=== PATIENT | male | born 1970 | race Caucasian/White ===

== ENCOUNTER 2017-02-26 13:37 | Inpatient (IN) | payer OTHER ==
--- NOTE | ~2017-02-26 | PN ---
Unit #: [id number] #: [id number] Patient: PITO LLOYD [id number] [facility] [address] [place] [address] [id number] MR#: [id number] NAME: PITO LLOYD ROOM: P212 Age: 46 Sex: M Admission Date: 02/26/2017 : 1970 Attending Physician: Johana Forrest M.D. Admitting Physician: Johana Forrest M.D. Primary Care Physician: Generic Doctor Not In System [facility] PROGRESS NOTES DATE March 04, 2017 DISCUSSION Mr. Lloyd is a 46-year-old white male, who was seen today and chart was reviewed and the case was discussed with the staff. He appears to be improving and has appeared to be coming out of the detox without any complications. He has been taking the medications and tolerating them fairly well. He denies any suicidal or homicidal ideations and has been taking the medications and level of precaution and will consider doing discharge tomorrow. Dictated by... Roxana Lozada/karen TD: 03/05/2017 06:44 JOB #: [id number] [facility] PROGRESS NOTES Page 1 of 1 X Johana Forrest MD PROGRESS NOTE
--- NOTE | ~2017-02-26 | HP ---
Unit #: [id number] #: [id number] Patient: PITO DIAMOND [id number] [place] [address] [id number] MR#: [id number] NAME: PITO DIAMOND ROOM: P212 Age: 46 Sex: M Admission Date: 02/26/2017 : 1970 Attending Physician: Johana Forrest M.D. Admitting Physician: Johana Forrest M.D. Primary Care Physician: Generic Doctor Not In System HISTORY AND PHYSICAL HISTORY OF PRESENT ILLNESS Pito is a 46 year old admitted to [address] [place] [address] because of his abuse of alcohol. PAST MEDICAL HISTORY 1. Long history of alcohol abuse. 2. Hepatitis C. 3. High blood pressure. PAST SURGICAL HISTORY Nothing reported ALLERGIES No known drug allergies. SOCIAL HISTORY Smokes one pack per day. Drinks a gallon of vodka plus 8 beers on a daily basis and admits to frequent use of marijuana. FAMILY HISTORY Medically noncontributory. REVIEW OF SYSTEMS CONSTITUTIONAL: No fever or chills. HEENT: Denies any sore throat, ear pain or runny nose. CARDIOVASCULAR: Denies chest pain, irregular heart rhythm or palpitations. CHEST: Denies shortness of breath or cough. No hemoptysis. GASTROINTESTINAL: Denies nausea, vomiting, diarrhea or chronic constipation. ENDOCRINE: Denies history of increased thirst or urination. No recent significant weight loss or gain. GENITOURINARY: Denies dysuria, frequency, or hematuria. SKIN: Denies any rashes. HEMATOLOGIC: Denies history of increased bleeding or bruising. MUSCULOSKELETAL: Denies any hot, swollen joints. No generalized muscle pain. NEUROLOGIC: Denies problems with vision or speech. No frequent, severe headaches. No numbness, tingling or weakness in any extremities. Denies loss of bladder or bowel control. CURRENT MEDICATIONS Detox protocol Unit #: [id number] #: [id number] Patient: PTIO DIAMOND PHYSICAL EXAMINATION GENERAL: Alert, well-nourished, in no apparent distress. VITAL SIGNS: Blood pressure 138/88, heart rate 84, respirations 16, temperature 98.6. WEIGHT: 135 pounds. HEIGHT: 5'8". SKIN: Warm and dry without rash or lesion. HEENT: Normocephalic. TMs not viewed. Oral and nasal passages clear. Conjunctivae clear. Pupils equal, round and reactive to light and accommodation. Extraocular movements intact. NECK: Supple without lymphadenopathy or thyromegaly. HEART: Regular rate and rhythm without murmur. LUNGS: Clear. ABDOMEN: Soft, nontender. : Not done. EXTREMITIES: No evidence of cyanosis, clubbing or edema. Moves all extremities without focal deficit. NEUROLOGICAL: Grossly within normal limits. Cranial Nerves: II: Visual villegas are intact. III, IV AND : Extraocular movements are intact. Pupils are equal, round and reactive to light. V: Facial sensation is grossly normal. VII: Facial movements and expression are normal. VIII: Auditory acuity grossly intact. IX, X: Uvula is midline. Phonation is normal. XI: Patient shrugs shoulders and turns head normally. XII: Tongue protrudes in the midline. Sensory and Motor Function: Sensory and motor sensation is grossly normal. Motor: moves all extremities well. Coordination: Gait is normal. Deep Tendon Reflexes: Intact. IMPRESSION Psychiatric admission RECOMMENDATIONS PSYCHIATRIC: Per psychiatrist. MEDICAL: I see no contraindications to participating in facility's activities. MEDICAL PROGNOSIS Good. MEDICAL CONDITION Stable. Dictated by... Vicky Paez P.A.-C. for Roxana Reis/loni TD: 02/26/2017 22:33 JOB #: [id number] Unit #: [id number] #: [id number] Patient: LOBO,PITO HISTORY AND PHYSICAL Page 1 of 1 X Vicky Paez HISTORY AND PHYSICAL
--- NOTE | ~2017-02-26 | DS ---
Unit #: [id number] #: [id number] [facility]: [facility] [id number] [facility] [address] [place] [address] [id number] I MR#: [id number] NAME: PITO LLOYD ROOM: [facility] Age: 46 Sex: M Admission Date: 02/26/2017 : 1970 Discharge Date: 03/05/2017 Attending Physician: Johana Forrest M.D. DISCHARGE SUMMARY IDENTIFYING DATA Mr. Lloyd is a 46-year-old white male, who is a resident of [place], [place] and was transferred to us from [facility] ([place], [place]) in [place]. DISCHARGE DIAGNOSES Psychiatric: Alcohol dependence, moderate and acute withdrawals; alcohol-induced mood disorder. Medical: Hepatitis C, history of cirrhosis of the liver, seizure disorder. Stressors: Moderate psychosocial stressors. HISTORY OF PRESENT ILLNESS Please see initial psychiatric evaluation for details. PAST PSYCHIATRIC HISTORY Please see initial psychiatric evaluation for details. PAST MEDICAL HISTORY Please see initial psychiatric evaluation for details. HOSPITAL COURSE The patient was admitted to the adult chemical dependency unit at [facility] and was oriented to the hospital environment. Routine p.r.n. medications were initiated, and he was started back on his home medications and alcohol detox protocol was initiated and he was initially seen to be anxious, restless, and rather seclusive to himself, but was able to come out of the detox without any complications and was willing to continue treatment on an outpatient basis and as such, it was decided that he will be discharged home and will continue treatment on an outpatient basis. DISCHARGE MEDICATIONS None. DISCHARGE CONDITION Stable. PROGNOSIS Fair. Dictated by... Johana Forrest M.D. Unit #: [id number] #: [id number] Patient: PITO LLOYD IAA/modl TD: 03/05/2017 06:58 JOB #: [id number] DISCHARGE SUMMARY Page 1 of 1 X Johana Forrest MD X DISCHARGE SUMMARY
--- NOTE | ~2017-02-26 | PN ---
Unit #: [id number] #: [id number] Patient: PITO LLOYD [id number] [facility] [address] [place] [address] [id number] I MR#: [id number] NAME: PITO LLOYD ROOM: [facility] Age: 46 Sex: M Admission Date: 02/26/2017 : 1970 Attending Physician: Johana Forrest M.D. Admitting Physician: Johana Forrest M.D. Primary Care Physician: Generic Doctor Not In System [facility] PROGRESS NOTES DATE OF SERVICE: 03/03/2017 SUBJECTIVE Mr. Lloyd is a 46-year-old white male who was seen today and chart was reviewed, and case was discussed with the staff. He has been anxious, withdrawn, and rather seclusive to himself, and has been cooperative with treatment recommendations, and has been taking the medications and tolerating them fairly well with no reported side effects. MENTAL STATUS EXAMINATION Middle-aged white male who was casually dressed with fair personal hygiene, appears to be in no acute distress or discomfort. He was awake and alert on interaction with intact orientation. His mood was anxious with a congruent affect. He denies any suicidal or homicidal ideations. His insight and judgment remain slightly impaired. TREATMENT PLAN 1. We will continue him on his current medications and treatment protocol. We will monitor his response to medications and make further adjustments as needed. 2. We will continue to follow up. Dictated by... Roxana Lozada/tanvir TD: 03/03/2017 14:52 JOB #: [id number] [facility] PROGRESS NOTES Page 1 of 1 X Johana Forrest MD PROGRESS NOTE
--- NOTE | ~2017-02-26 | PN ---
Unit #: [id number] #: [id number] Patient: PITO LLOYD [id number] [facility] [address] [place] [address] [id number] MR#: [id number] NAME: PITO LLOYD ROOM: [facility] Age: 46 Sex: M Admission Date: 02/26/2017 : 1970 Attending Physician: Johana Forrest M.D. Admitting Physician: Johana Forrest M.D. Primary Care Physician: Generic Doctor Not In System [facility] PROGRESS NOTES DATE OF SERVICE: 02/27/2017 SUBJECTIVE Mr. Lloyd is a 46-year-old white male with alcohol dependence and mood disorder, who was seen today and chart was reviewed, and case was discussed with the staff. He has been anxious, withdrawn, in distress or discomfort, unkempt, disheveled, shaky, and tremulous with slurred speech and has not been able to get out of his bed. Meanwhile, he has been taking medications and tolerating them fairly well with no reported side effects. MENTAL STATUS EXAMINATION Middle-aged white male, who was casually dressed with fair personal hygiene, appears to be in no acute distress or discomfort. He was awake and alert with impaired attention and concentration. His mood was anxious with a congruent affect. His speech is slow and restricted in content. He denies any suicidal or homicidal ideation. His insight and judgment remain significantly impaired. TREATMENT PLAN 1. We will continue him on his current medications and treatment protocol. We will monitor his response to medications and make further adjustments as needed. 2. We will continue to follow up. Dictated by... Roxana Lozada/tanvir TD: 02/27/2017 23:29 JOB #: [id number] Unit #: [id number] #: [id number] Patient: PITO LLOYD PROGRESS NOTES Page 1 of 1 X Johana Forrest MD PROGRESS NOTE
--- NOTE | ~2017-02-26 | PN ---
Unit #: [id number] #: [id number] Patient: PITO LLOYD [id number] [facility] [address] [place] [address] [id number] MR#: [id number] NAME: PITO LLOYD ROOM: [facility] Age: 46 Sex: M Admission Date: 02/26/2017 : 1970 Attending Physician: Johana Forrest M.D. Admitting Physician: Johana Forrest M.D. Primary Care Physician: Generic Doctor Not In System [facility] PROGRESS NOTES DATE OF SERVICE 03/01/2017 DISCUSSION Ms. Lloyd is a 46-year-old male who was seen today. Chart was reviewed and case was discussed with the staff. He has been anxious, withdrawn, and rather seclusive to himself. Meanwhile, he has been cooperative with treatment recommendations and has been taking the medications and tolerating them fairly well with no reported side effects. MENTAL STATUS EXAMINATION Middle-aged white male who is casually dressed with fair personal hygiene, appears to be in no slight distress or discomfort. He was awake and alert with intact orientation. His mood is anxious with congruent affect. He denies any suicidal or homicidal ideations. His insight and judgment remain slightly impaired. TREATMENT PLAN 1. We will continue him on his current medications and treatment protocol. We will monitor his response to the medications and make further adjustments as needed. 2. We will continue to follow up. Dictated by... Johana Forrest M.D. IAA/bzg TD: 03/02/2017 07:40 JOB #: [id number] [facility] PROGRESS NOTES Page 1 of 1 X Johana Forrest MD PROGRESS NOTE
--- NOTE | ~2017-02-26 | PN ---
Unit #: [id number] #: [id number] Patient: PITO LLOYD [id number] [facility] [address] [place] [address] [id number] I MR#: [id number] NAME: PITO LLOYD ROOM: [facility] Age: 46 Sex: M Admission Date: 02/26/2017 : 1970 Attending Physician: Johana Forrest M.D. Admitting Physician: Johana Forrest M.D. Primary Care Physician: Generic Doctor Not In System [facility] PROGRESS NOTES DATE 03/02/2017 DISCUSSION Mr. Lloyd is a 46-year-old white male who was seen today and chart was reviewed and case was discussed with the staff. He has been anxious, withdrawn though has not shown any agitation, irritability and has been cooperative with treatment recommendations and has been taking medications and tolerating them fairly well with no reported side effects. MENTAL STATUS EXAMINATION Middle-aged white male who was casually dressed with fair personal hygiene and appears to be in no acute distress or discomfort. He was awake and alert on interaction with intact orientation. His mood was anxious with congruent affect. His speech is slow and goal-directed. He denies any suicidal or homicidal ideation and also denies any auditory or visual hallucinations. His insight and judgement remains slightly impaired. TREATMENT PLAN 1. Will continue on his current medications and treatment protocol. Will monitor his response and make further adjustments as needed. 2. Will continue to follow up. Dictated by... Johana Forrest M.D. IAA/ida TD: 03/02/2017 22:18 JOB #: [id number] Unit #: [id number] #: [id number] Patient: PITO LLOYD PEATIFFANIE PROGRESS NOTES Page 1 of 1 X Johana Forrest MD X PROGRESS NOTE
--- NOTE | ~2017-02-26 | A ---
[facility] Nutrition Therapy DATE: 02/28/17 Patient: PITO DIAMOND Physician: AFAIRF Address: [address] Room/Bed: [address], Zip: [place] [address] Admit Date: 02/26/17 Date of : [birth year] Height: 5 8 Weight: 134 61.48234 NUTRITIONAL ASSESSMENT: REASON: NUTRITION RISK POINT- UNINTENTIONAL WEIGHT LOSS PATIENT ADMITTED FOR ETOH DETOX PMH: HTN, HEP C, CIRRHOSIS Anthropometrics: HT: 5'8", WT: 135#, BMI: 20.5, %IBW: 88 Labs: 02/27/17- GLU: 139, ALB: 3.2 Meds: DESYREL, DETOX PROTOCOL Assessment: PATIENT IS A 46 Y/O MALE ADMITTED FOR ETOH DETOX. PATIENT IS CURRENTLY UNEMPLOYED, HOMELESS, SMOKES 1 PPD, DRINKS A GALLON OF ETOH DAILY, AND HAS FREQUENT MARIJUANA USE. PATIENT HAS BEEN NON-COMPLIANT WITH MEDICATIONS OUTSIDE OF FACILITY AND HE HAS A HX OF INPATIENT CHEMICAL DEPENDENCY TREATMENT. PATIENT STATED A GOOD APPETITE WITH NO RECENT WEIGHT CHANGES. NURSING REPORTS GOOD PO INTAKES. PATIENT'S BMI IS WITHIN A HEALTHY RANGE OF 19-25. THERE ARE NO SKIN OR GI ISSUES NOTED ATT. PATIENT IS ON A REGULAR DIET WITH NO CAFFEINE, LARGE PORTION ENTREES, AND ENSURE TID. Dx: NO NUTRITION DX Intervention: REGULAR DIET WITH LARGE PORTIONS, MEDS PER MD, DETOX, PSYCH Monitoring, Evaluation and Goals: 1. ADEQUATE PO INTAKES >50% OF MEALS 2. PREVENT, CORRECT MICRO/MACRO NUTRIENT DEFICIENCIES 3. WEIGHT; PREVENT WEIGHT LOSS MONITOR: WEIGHTS, LABS, PO/FLUID INTAKES Recommendations: 1. CONTINUE REGULAR DIET WITH NO CAFFEINE AND LARGE PORTION ENTREES TOLERATED. RECOMMEND D/CING ENSURE TID D/T NO NUTRITIONAL NEED FOR EXCESSIVE CALORIC INTAKE 2. ENCOURAGE ADEQUATE PO AND FLUID INTAKES 3. OBTAIN WEIGHTS ROUTINELY (EVERY 3-4 DAYS) RD TO F/U PER PROTOCOL AND PRN R/T PATIENT NOT AT NUTRITIONAL RISK ATT [facility] Nutrition Therapy DATE: 02/28/17 Patient: PITO DIAMOND Physician: AFF Address: [address] Room/Bed: [address], Zip: [place] [address] Admit Date: 04/17/17 Date of : [birth year] Height: 5 8 Weight: [phone] Respectfully, ARMEN TELLEZ, MITCHELL, LD [employer] [facility] [employer] cc: client file
--- NOTE | ~2017-02-26 | PN ---
Unit #: [id number] #: [id number] Patient: PITO LLOYD [id number] [facility] [address] [place] [address] [id number] I MR#: [id number] NAME: PITO LLOYD ROOM: [facility] Age: 46 Sex: M Admission Date: 02/26/2017 : 1970 Attending Physician: Johana Forrest M.D. Admitting Physician: Johana Forrest M.D. Primary Care Physician: Generic Doctor Not In System [facility] PROGRESS NOTES DATE OF SERVICE 02/28/2017 DISCUSSION Mr. Lloyd is a 46-year-old white male with substance abuse and mood disorder who was seen today. Chart was reviewed and case was discussed with the staff. He has been anxious, withdrawn, and rather seclusive to himself. Meanwhile, he has been in acute distress and discomfort. He is going through detox. However, he has been taking the medications and tolerating them fairly well with no reported side effects. MENTAL STATUS EXAMINATION Middle-aged white male who is casually dressed with fair personal hygiene, appears to be in no acute distress or discomfort. He was awake and alert on interaction with intact orientation. His mood is anxious and depressed with congruent affect. He denies any suicidal or homicidal ideations. His insight and judgment remain slightly impaired. TREATMENT PLAN 1. We will continue him on his current medications and treatment protocol. We will monitor his response to the medications and make further adjustments as needed. 2. We will continue to follow up. Dictated by... Roxana Lozada/jose eduardo TD: 03/01/2017 08:21 JOB #: [id number] Unit #: [id number] #: [id number] Patient: PITO LLOYD PEATIFFANIE PROGRESS NOTES Page 1 of 1 X Johana Forrest MD PROGRESS NOTE
--- NOTE | ~2017-02-26 | PA ---
Unit #: [id number] #: [id number] Patient: PITO LLOYD [id number] [facility] [address] [place] [address] [id number] I MR#: [id number] NAME: PITO LLOYD ROOM: P212 Age: 46 Sex: M Admission Date: 02/26/2017 : 1970 Date of Assessment: 02/26/2017 Attending Physician: Johana Forrest M.D. Admitting Physician: Johana Forrest M.D. Primary Care Physician: Generic Doctor Not In System PSYCHIATRIC ASSESSMENT DATE OF SERVICE 02/26/2017. IDENTIFYING DATA Mr. Lloyd is a 46-year-old white male, who is a resident of [place], [place], and was transferred to us from [facility] in [place], [place]. CHIEF COMPLAINT "I've been using alcohol for several years." HISTORY OF PRESENT ILLNESS Mr. Lloyd is a 46-year-old white male, who presented to the [facility] stating that he has been having ongoing issues with alcohol misuse for several years and he is currently drinking a gallon of vodka a day plus 6 to 8 beers and his last drink was around 2 in the morning on the day of coming to the hospital and has been having significant withdrawal symptoms including nausea, dry heaves, shakiness, pins and needles on his hand and feet, and sensitive to bright lights, and cravings, and has history of seizure most recently a year ago and also reports history of delirium tremens in the past with a most recent episode couple of months ago and was seen to be in significant distress and discomfort and as such, recommendation for inpatient level of care for safety and stabilization was recommended and the patient was transferred to us. SUBSTANCE ABUSE HISTORY The patient reports history of experimentation with cannabis and alcohol, though alcohol has been his drug of choice and reports that he has been drinking since he was 18 years old and currently has been drinking a gallon of vodka a day. PAST PSYCHIATRIC HISTORY The patient has had history of inpatient chemical dependency treatment at [facility] and in [facility] and review of the medical records indicate that currently he is not active in treatment program, is not seeing a psychiatrist, not taking any psychotropic medications. PAST MEDICAL HISTORY Significant for hepatitis C, cirrhosis, hypertension. ALLERGIES No known medication allergies. Unit #: [id number] #: [id number] Patient: PITO LLOYD PERSONAL AND SOCIAL HISTORY A 46-year-old white male, who reports that he is single, unemployed, and essentially homeless and has poor social support system. MENTAL STATUS EXAMINATION Middle-aged white male who was casually dressed with fair personal hygiene, appears to be in no acute distress or discomfort. He was awake and alert on interaction with intact orientation to time, place, and person. His mood was anxious and depressed with a congruent affect. His speech was slow and restricted in content. His thought processes were disorganized with some looseness of associations. He denies any suicidal or homicidal ideations, and also denies any auditory or visual hallucinations. His insight and judgment remain significantly impaired. DIAGNOSTIC IMPRESSION Psychiatric: Alcohol dependence, moderate and acute withdrawals; alcohol-induced mood disorder. Medical: Hepatitis C, cirrhosis of the liver, seizure disorder. Stressors: Moderate psychosocial stressors. TREATMENT PLAN 1. The patient has presented with history of substance abuse and mood disorder, and has been decompensating and will need inpatient hospitalization for detoxification, safety, and stabilization. We will start him back on his home medications. We will adjust the medications and monitor response. 2. Supportive therapy was provided to the patient. 3. Safe, structured, and nourishing environment will be provided. ESTIMATED LENGTH OF STAY 5 to 7 days. ABILITY TO HELP SELF Limited. WILLINGNESS TO HELP SELF The patient appears to be willing to help self. STRENGTHS 1. Communicative. 2. Cooperative. PROBLEMS 1. Chronic dysphoric symptoms. 2. Chronic chemical dependency. DISCHARGE CRITERIA This will be contingent upon the patient's ability to go through detox without having any significant withdrawal symptoms as well as his ability to stay safe to himself, particularly after discharge from the hospital. Dictated by... Roxana Lozada/tanvir Unit #: [id number] #: [id number] Patient: PITO LLOYD TD: 02/27/2017 08:46 JOB #: [id number] PSYCHIATRIC ASSESSMENT Page 1 of 1 X Johana Forrest MD X PSYCHIATRIC ASSESSMENT
[2017-02-27 09:58] LABS: BASOPHIL% 0.7 % (0-2.5); EOSINOPHIL# 0.2 X10e3 (0-0.7); EOSINOPHIL% 3.7 % (0.0-7.0); HEMATOCRIT 38.7 % (38.0-50.0); LYMPHOCYTE# 0.8 X10e3 (1.0-3.5); LYMPHOCYTE% 15.3 % (17.0-45.0); MEAN CELL VOLUME 95.7 FL (83-96); MEAN CORPUSCULAR HGB CONC 33.5 g/dL (30-36); MEAN PLATELET VOLUME 9.8 FL (6.5-11.5); MONOCYTE# 0.4 X10e3 (0-1.0); NEUTROPHIL# 3.6 X10e3 (1.5-7.1); NEUTROPHIL% 72.3 % (40-75); PLATELET COUNT 175 X10e3 (140-420); RED BLOOD COUNT 4.04 X10e (3.90-5.60); RED CELL DISTRIBUTION WIDTH 13.5 % (11.0-15.5)
[2017-02-27 10:00] LABS: URINE APPEARANCE CLOUDY; URINE BILIRUBIN NEG (NEG); URINE BLOOD NEG (NEG); URINE COLOR YELLOW; URINE GLUCOSE NORM (NORM); URINE KETONE NEG (NEG); URINE LEUKOCYTE ESTERASE NEG (NEG); URINE NITRATE NEG (NEG); URINE PROTEIN NEG (NEG); URINE UROBILINOGEN NORM (NORM)
[2017-02-27 10:00] LABS: DIFF IND NO
[2017-02-27 10:04] LABS: ALBUMIN SERUM 3.2 g/dL (3.5-5.0); BILIRUBIN,TOTAL 0.9 mg/dL (0.2-2.0); BUN/CREATININE RATIO 11.25; CALCIUM SERUM 8.7 mg/dL (8.4-10.2); CREATININE SERUM 0.8 mg/dL (0.6-1.4); GLOM FILT RATE Estimated 108.7 mL/min (>60); POTASSIUM 3.8 mmol/L (3.5-5.1); PROTEIN TOTAL SERUM 6.1 g/dL (6.0-8.3)
== END 2017-03-05 09:40 | disposition home or self-care (01) | DRG 897 ==
LOC: P2S 13:37
PROVIDERS: Psychiatry & Neurology Psychiatry
PROC: HZ2ZZZZ Detoxification Services for Substance Abuse Treatment (ICD-10-PCS; principal; 2017-02-26)
DX: F10.239 Alcohol dependence with withdrawal, unspecified (principal); K74.60 Unspecified cirrhosis of liver; G40.909 Epilepsy, unspecified, not intractable, without status epilepticus; F17.210 Nicotine dependence, cigarettes, uncomplicated
CPT/HCPCS: 80053; 81003; 85025; 86592

== ENCOUNTER 2017-03-16 15:26 | Inpatient (IN) | payer OTHER ==
--- NOTE | ~2017-03-16 | PN ---
Unit #: [id number] #: [id number] Patient: PITO LLOYD [id number] [facility] [address] [place] [address] [id number] MR#: [id number] NAME: PITO LLOYD ROOM: [facility] Age: 46 Sex: M Admission Date: 03/16/2017 : 1970 Attending Physician: Johana Forrest M.D. Admitting Physician: Johana Forrest M.D. Primary Care Physician: Generic Doctor Not In System [facility] PROGRESS NOTES DATE OF SERVICE 03/19/2017 DISCUSSION Mr. Lloyd is a 46-year-old white male who was seen today. Chart was reviewed and case was discussed with the staff. He has been anxious, withdrawn, and rather seclusive to herself. Meanwhile, he has been cooperative with the treatment recommendations and has been taking the medications and tolerating them fairly well with no reported side effects. MENTAL STATUS EXAMINATION Middle-aged white male who is casually dressed with marginal personal hygiene. He appears to be in distress and discomfort. He has been awake and alert with impaired attention and concentration. His mood is anxious with congruent affect. His speech is slow and restricted in content. He denies any suicidal or homicidal ideations and also denies any auditory or visual hallucinations. His insight and judgment remain slightly impaired. TREATMENT PLAN 1. We will continue him on his current medications and treatment protocol. We will monitor his response and make further adjustments as needed. 2. We will continue to follow up. Dictated by... Johana Forrest M.D. IAA/bzg TD: 03/20/2017 09:19 JOB #: [id number] Unit #: [id number] #: [id number] Patient: PITO LLOYD PROGRESS NOTES Page 1 of 1 X Johana Forrest MD PROGRESS NOTE
--- NOTE | ~2017-03-16 | PN ---
Unit #: [id number] #: [id number] Patient: PITO OLSON [id number] [facility] [address] [place] [address] [id number] I MR#: [id number] NAME: PITO OLSON ROOM: [facility] [place] Age: 46 Sex: M Admission Date: 03/16/2017 : 1970 Attending Physician: Johana Forrest M.D. Admitting Physician: Johana Forrest M.D. Primary Care Physician: Generic Doctor Not In System [facility] PROGRESS NOTES DATE 03/18/2017 DISCUSSION Mr. olson is a 46-year-old, white male who was seen today and chart was reviewed and case was discussed with the staff. He was seen to be anxious, withdrawn, unkempt, disheveled and rather seclusive to himself. Meanwhile, he has been cooperative with treatment recommendations. He has been taking medications and tolerating them fairly well with no reported side effects. MENTAL STATUS EXAM Middle-aged white male who was casually dressed with fair personal hygiene, appears to be in no acute distress or discomfort. He was awake and alert with intact orientation. His mood was anxious with congruent affect. His speech was slow and goal directed. He denies any suicidal or homicidal ideation. His insight and judgement remains slightly impaired. TREATMENT PLAN 1. We will continue him on his current medications and treatment protocol. We will monitor his response and make further adjustments as needed. 2. We will continue to follow up. Dictated by... Roxana Lozada/loni TD: 03/20/2017 02:58 JOB #: [id number] Unit #: [id number] #: [id number] Patient: PITO OLSON PROGRESS NOTES Page 1 of 1 X Johana Forrest MD PROGRESS NOTE
--- NOTE | ~2017-03-16 | PA ---
Unit #: [id number] #: [id number] Patient: PITO LLOYD [id number] [facility] [address] [place] [address] [id number] I MR#: [id number] NAME: PITO LLOYD ROOM: P212 Age: 46 Sex: M Admission Date: 03/16/2017 : 1970 Date of Assessment: Attending Physician: Johana Forrest M.D. Admitting Physician: Johana Forrest M.D. PSYCHIATRIC ASSESSMENT DATE OF SERVICE 03/17/2017. IDENTIFYING DATA Mr. Lloyd is a 46-year-old , white male, who is known to me from previous encounter, was recently discharged from my care and was transferred back to us from [facility] on a voluntary basis. CHIEF COMPLAINT "I've been drinking a pint of vodka and a beer." HISTORY OF PRESENT ILLNESS Mr. Lloyd is a 46-year-old white male with a long history of alcohol dependence, who was taken to [facility] in [place], [place] Emergency Room with a blood alcohol level of 359 and was seemed to be unkempt, disheveled, in significant distress and discomfort, stating that he last drank a pint of beer and a pint of vodka a few hours ago and reports that he was discharged from [facility] on 03/05/2017 and he was in shelter the day before yesterday and he got out and started drinking immediately and was seemed to be in significant distress and discomfort with increasing depression, anxiety, and was medically cleared and then was transferred to us. On evaluation by me, the patient was seemed to be unkempt, disheveled, in significant distress and was describing feeling "awful." He also reports increasing depression, anxiety with feelings of hopelessness and helplessness, making statements that he cannot keep on going on like this. He reports about a year ago, he attempted suicide by drinking a pint of 100 proof alcohol and taking a bottle of blood pressure medication. He reports over the last 2 years, he has experienced intermittent thoughts of killing himself with no specific plan. He reports that he attempted suicide by overdose on blood pressure medication and other medications a few months ago, and currently denies any suicidal ideations. However, the patient became frustrated with a question and stated that if someone did not give him medication to calm down, he would hurt someone and then leave the hospital and wants to be danger to self and others, and therefore recommendation for inpatient level of care for safety and stabilization was made, and the patient was transferred to us. SUBSTANCE ABUSE HISTORY The patient reports a long history of alcohol dependence and has been drinking heavy amounts of alcohol, and denies any other drug abuse. PAST PSYCHIATRIC HISTORY Unit #: [id number] #: [id number] Patient: PITO LLYOD The patient has had a history of inpatient chemical dependency treatment at [facility], [facility], and [facility]. Review of the medical records indicate that currently he is not active in any treatment program, is not seeing a psychiatrist, and is not taking any psychotropic medications. PAST MEDICAL HISTORY History of cirrhosis of the liver, hepatitis C, hypertension. ALLERGIES No known medication allergies. CURRENT MEDICATIONS None. PERSONAL AND SOCIAL HISTORY A 46-year-old white male, who reports that he is , unemployed, and he is currently homeless and has poor social support system. MENTAL STATUS EXAMINATION Middle-aged white male, who was casually dressed with marginal personal hygiene, appears to be in no acute distress or discomfort. He was awake and alert with impaired attention and concentration. His mood was anxious and depressed with a congruent affect. His speech was slow and restricted in content. His thought processes were disorganized with some looseness of associations and flight of ideas. His insight and judgment remain significantly impaired. DIAGNOSTIC IMPRESSION Psychiatric: Alcohol dependence, moderate, in acute withdrawals; alcohol-induced mood disorder. Medical: Cirrhosis of the liver, hepatitis C, hypertension. Stressors: Moderate psychosocial stressors. TREATMENT PLAN 1. The patient has presented with history of mood disorder and substance abuse and has been decompensating, and will need inpatient hospitalization for safety and stabilization. We will start him on detox protocol. We will closely monitor for any worsening withdrawal symptoms. 2. Supportive therapy was provided to the patient. 3. Safe, structured, and nourishing environment will be provided. ESTIMATED LENGTH OF STAY 5 to 7 days. ABILITY TO HELP SELF Limited. WILLINGNESS TO HELP SELF The patient appears to be willing to help self. STRENGTHS 1. Communicative. 2. Cooperative. PROBLEMS 1. Chronic dysphoric symptoms. 2. Chronic chemical dependency. 3. Poor social support system. Unit #: [id number] #: [id number] Patient: PITO LLOYD DISCHARGE CRITERIA This will be contingent upon the patient's ability to go through detox without having any significant withdrawal symptoms as well as his ability to stay safe to himself, particularly after discharge from the hospital. Dictated by... Roxana Lozada/tanvir TD: 03/17/2017 16:33 JOB #: [id number] PSYCHIATRIC ASSESSMENT Page 1 of 1 X Johana Forrest MD PSYCHIATRIC ASSESSMENT
--- NOTE | ~2017-03-16 | PN ---
Unit #: [id number] #: [id number] Patient: PITO LLOYD [id number] [facility] [address] [place] [address] [id number] I MR#: [id number] NAME: PITO LLOYD ROOM: P212 Age: 46 Sex: M Admission Date: 03/16/2017 : 1970 Attending Physician: Johana Forrest M.D. Admitting Physician: Johana Forrest M.D. Primary Care Physician: Generic Doctor Not In System [facility] PROGRESS NOTES DATE 03/20/2017 DISCUSSION Mr. Lloyd is a 46-year-old, white male who was seen today and chart was reviewed and case was discussed with the staff. He has been anxious, withdrawn and rather seclusive to himself. Meanwhile, he has been cooperative with treatment recommendations. He has been taking medications and tolerating them fairly well with no reported side effects. MENTAL STATUS EXAM Middle-aged white male who was casually dressed with marginal personal hygiene, appears to be in distress or discomfort. He was awake and alert on interaction with intact orientation. His mood was anxious with congruent affect. He denies any suicidal or homicidal ideation. Also, denies any auditory or visual hallucinations. His insight and judgement remains slightly impaired. TREATMENT PLAN 1. We will continue him on his current medications and treatment protocol. We will monitor his response to the medication and make further adjustments as needed. 2. We will continue to follow up. Dictated by... Roxana Lozada/loni TD: 03/21/2017 03:16 JOB #: [id number] Unit #: [id number] #: [id number] Patient: PITO LLOYD PROGRESS NOTES Page 1 of 1 X Johana Forrest MD X PROGRESS NOTE
--- NOTE | ~2017-03-16 | PN ---
Unit #: [id number] #: [id number] Patient: PITO LLOYD [id number] [facility] [address] [place] [address] [id number] I MR#: [id number] NAME: PITO LLOYD ROOM: P212 Age: 46 Sex: M Admission Date: 03/16/2017 : 1970 Attending Physician: Johana Forrest M.D. Admitting Physician: Johana Forrest M.D. Primary Care Physician: Generic Doctor Not In System [facility] PROGRESS NOTES DATE 03/21/2017 DISCUSSION Mr. Lloyd is a 46-year-old, white male who was seen today and chart was reviewed and case was discussed with the staff. He has been anxious, withdrawn and seclusive to himself and once again was seen to be (1)____ though he stated that he is feeling "a little better." Meanwhile, he has been taking the medications and tolerating them fairly well with no reported side effects. MENTAL STATUS EXAM Middle-aged white male was casually dressed with fair personal hygiene. He appears to be in no acute distress or discomfort. He was awake and alert on interaction with intact orientation. His mood was anxious with congruent affect. He denies any suicidal or homicidal ideation. His insight and judgement remains slightly impaired. TREATMENT PLAN 1. We will continue him on his current medications and treatment protocol. We will monitor his response to the medication and make further adjustments as needed. 2. We will continue to follow up. Dictated by... Roxana Lozada/loni TD: 03/22/2017 03:22 JOB #: [id number] Unit #: [id number] #: [id number] Patient: PITO LLOYD [facility] PROGRESS NOTES Page 1 of 1 X Johana Forrest MD PROGRESS NOTE
--- NOTE | ~2017-03-16 | HP ---
Unit #: [id number] #: [id number] Patient: PITO DIAMOND [id number] [facility] [address] [place] [address] [id number] I MR#: [id number] NAME: PITO DIAMOND ROOM: [facility][Note 3]2 Age: 46 Sex: M Admission Date: 03/16/2017 : 1970 Attending Physician: Johana Forrest M.D. Admitting Physician: Johana Forrest M.D. Primary Care Physician: Generic Doctor Not In System HISTORY AND PHYSICAL NOTE The patient is a 46-year-old male admitted to [address] [place] [address] on 03/16/2017 to detox from alcohol. The patient had a recent admission on 02/26/2017 where a full history and physical was completed. Please see H and P dated 02/26/2017. That history and physical was reviewed. No changes need to be made. Dictated by... Bridger Lyons A.P.R.N. EF/bzg TD: 03/17/2017 11:32 JOB #: [id number] HISTORY AND PHYSICAL Page 1 of 1 X BRIDGER LYONS APRN X HISTORY AND PHYSICAL
== END 2017-03-22 15:37 | disposition home or self-care (01) | DRG 897 ==
LOC: P2S 21:57
DX: F10.239 Alcohol dependence with withdrawal, unspecified (principal); F10.24 Alcohol dependence with alcohol-induced mood disorder; K74.60 Unspecified cirrhosis of liver; I10 Essential (primary) hypertension; F17.210 Nicotine dependence, cigarettes, uncomplicated; B19.20 Unspecified viral hepatitis C without hepatic coma

== ENCOUNTER 2017-04-03 06:00 | Inpatient (IN) | payer OTHER ==
--- NOTE | ~2017-04-03 | PN ---
Unit #: [id number] #: [id number] Patient: PITO LLOYD [id number] [facility] [address] [place] [address] [id number] I MR#: [id number] NAME: PITO LLOYD ROOM: P214 Age: 46 Sex: M Admission Date: 04/03/2017 : 1970 Attending Physician: Johana Forrest M.D. Admitting Physician: Roxana Lozada NOTES DATE OF SERVICE: 04/07/2017 SUBJECTIVE Mr. Lloyd is a 46-year-old white male who was seen today and chart was reviewed, and case was discussed with the staff. He has been anxious, withdrawn, and rather seclusive to himself. Meanwhile, he has been cooperative with treatment recommendations and has been taking medications and tolerating them fairly well. MENTAL STATUS EXAMINATION Middle-aged white male who was casually dressed with fair personal hygiene, appears to be in no acute distress or discomfort. He was awake and alert on interaction with intact orientation. His mood was anxious with a congruent affect. He denies any suicidal or homicidal ideations. His insight and judgment remain slightly impaired. TREATMENT PLAN We will continue him on his current treatment protocol. We will monitor his response. Dictated by... Roxana Lozada/tanvir TD: 04/07/2017 14:11 JOB #: [id number] JUAN ORELLANA NOTES Page 1 of 1 X Johana Forrest MD PROGRESS NOTE
--- NOTE | ~2017-04-03 | PN ---
Unit #: [id number] #: [id number] Patient: PITO LLOYD [id number] [facility] [address] [place] [address] [id number] I MR#: [id number] NAME: PITO LLOYD ROOM: P214 Age: 46 Sex: M Admission Date: 04/03/2017 : 1970 Attending Physician: Johana Forrest M.D. Admitting Physician: Johana Forrest M.D. Primary Care Physician: Generic Doctor Not In System [facility] PROGRESS NOTES DATE 04/06/2017 DISCUSSION Mr. Lloyd is a 46-year-old white male with alcohol dependence and mood disorder who was seen today and reviewed and case was discussed with the staff as he was seen to be anxious, restless in acute distress or discomfort and going through detox. Meanwhile, he has been taking medications and tolerating them fairly well with no reported side effects. MENTAL STATUS EXAMINATION Middle-aged white male who was casually dressed with fair personal hygiene and appears to be in slight distress or discomfort. He was awake and alert with impaired attention and concentration. His mood was anxious with congruent affect. His speech is slow and tangential. His thought processes were disorganized with some looseness of associations. His insight and judgement remains significantly impaired. TREATMENT PLAN 1. Will continue on his current treatment protocol. Will monitor his response and make further adjustments as needed. 2. Will continue to follow up. Dictated by... Johana Forrest M.D. IAA/ida TD: 04/07/2017 16:36 JOB #: [id number] Unit #: [id number] #: [id number] Patient: PITO LLOYD [facility] PROGRESS NOTES Page 1 of 1 X Johana Forrest MD X PROGRESS NOTE
--- NOTE | ~2017-04-03 | PN ---
Unit #: [id number] #: [id number] Patient: PITO LLOYD [id number] [facility] [address] [place] [address] [id number] I MR#: [id number] NAME: PITO LLOYD ROOM: P214 Age: 46 Sex: M Admission Date: 04/03/2017 : 1970 Attending Physician: Johana Forrset M.D. Admitting Physician: Roxana Lozada NOTES DATE OF SERVICE: 04/05/2017 SUBJECTIVE Mr. Lloyd is a 46-year-old white male with alcohol dependence who was seen today and chart was reviewed, and case was discussed with the staff. He was seen to be unkempt, disheveled, anxious, withdrawn, seclusive to himself and in distress and discomfort as he is going through detox. Meanwhile, he has been taking medications and tolerating them fairly well with no reported side effects. MENTAL STATUS EXAMINATION Middle-aged white male, who was casually dressed with marginal personal hygiene, appears to be in no acute distress or discomfort. He was awake and alert with impaired attention and concentration. His mood was anxious with a congruent affect. His speech was slow and (1) . His thought processes were disorganized with some looseness of associations and flight of ideas. His insight and judgment remain significantly impaired. TREATMENT PLAN 1. We will continue his on his current medications and treatment protocol. We will monitor his response to medications and make further adjustments as needed. 2. We will continue to follow up. Dictated by... Roxana Lozada/tanvir TD: 04/06/2017 08:25 JOB #: [id number] Unit #: [id number] #: [id number] Patient: PITO LLOYD JUAN ORELLANA NOTES Page 1 of 1 X Johana Forrest MD PROGRESS NOTE
--- NOTE | ~2017-04-03 | PN ---
Unit #: [id number] #: [id number] Patient: PITO LLOYD [id number] [facility] [address] [place] [address] [id number] I MR#: [id number] NAME: PITO LLOYD ROOM: P214 Age: 46 Sex: M Admission Date: 04/03/2017 : 1970 Attending Physician: Johana Forrest M.D. Admitting Physician: Johana Forrest M.D. Primary Care Physician: Generic Doctor Not In System [facility] PROGRESS NOTES DATE 04/10/2017 DISCUSSION Mr. Lloyd is a 46-year-old white male who was seen today. Chart was reviewed and case was discussed with staff. He has been anxious, withdrawn, and rather seclusive to himself. Meanwhile, he appears to be (1) __ fairly well. MENTAL STATUS EXAMINATION Middle-aged white male who is casually dressed with fair personal hygiene, appears to be in no acute distress or discomfort. He was awake and alert with intact orientation. His mood is anxious with congruent affect. He denies any suicidal or homicidal ideations. His insight and judgment remain slightly impaired. TREATMENT PLAN 1. We will continue him on his current medications and treatment protocol. We will monitor his response to the medications and make further adjustments as needed. 2. We will continue to follow up. Dictated by... Johana Forrest M.D. CYN/savitag TD: 04/11/2017 10:01 JOB #: [id number] [facility] PROGRESS NOTES Page 1 of 1 X Johana Forrest MD PROGRESS NOTE
--- NOTE | ~2017-04-03 | PN ---
Unit #: [id number] #: [id number] Patient: PITO LLOYD [id number] [facility] [address] [place] [address] [id number] I MR#: [id number] NAME: PITO LLOYD ROOM: P214 Age: 46 Sex: M Admission Date: 04/03/2017 : 1970 Attending Physician: Johana Forrest M.D. Admitting Physician: Johana Forrest M.D. Primary Care Physician: Generic Doctor Not In System [facility] PROGRESS NOTES DATE 04/08/2017 DISCUSSION Mr. Lloyd is a 46-year-old, white male who was seen today and chart was reviewed and case was discussed with the staff. He has been anxious, restless, withdrawn though appears to be doing somewhat better and appears to be coming out of the detox without any complications. Meanwhile, he has been taking the medication and tolerating them fairly well with no reported side effects. MENTAL STATUS EXAM Middle-aged white male who was casually dressed with fair personal hygiene, appears to be in no acute distress or discomfort. He was awake and alert on interaction with intact orientation. His mood was anxious with congruent affect. He denies any suicidal or homicidal ideation. His insight and judgement remains slightly impaired. TREATMENT PLAN 1. We will continue him on his current treatment protocol. We will monitor his response and make further adjustments as needed. 2. We will continue to follow up. Dictated by... Roxana Lozada/loni TD: 04/09/2017 17:07 JOB #: [id number] Unit #: [id number] #: [id number] Patient: PITO LLOYD [facility] PROGRESS NOTES Page 1 of 1 X Johana Forrest MD X PROGRESS NOTE
--- NOTE | ~2017-04-03 | DS ---
Unit #: [id number] #: [id number] Patient: PITO LLOYD [id number] [facility] [address] [place] [address] [id number] I MR#: [id number] NAME: PITO LLOYD ROOM: P214 Age: 46 Sex: M Admission Date: 04/03/2017 : 1970 Discharge Date: 04/11/2017 Attending Physician: Johana Forrest M.D. Primary Care Physician: Generic Doctor Not In System DISCHARGE SUMMARY IDENTIFYING DATA Mr. Lloyd is a 46-year-old white male, who is a resident of [place], [place], and is known to us from previous encounter, was recently discharged from my care with the last couple of weeks and was transferred back to us from [facility] and presented with blood alcohol level of 0.274. DISCHARGE DIAGNOSES Psychiatric: Alcohol dependence, moderate and acute withdrawals; alcohol-induced mood disorder. Medical: None. Stressors: Moderate psychosocial stressors. HISTORY OF PRESENT ILLNESS Please see initial psychiatric evaluation for details. PAST PSYCHIATRIC HISTORY Please see initial psychiatric evaluation for details. PAST MEDICAL HISTORY Please see initial psychiatric evaluation for details. HOSPITAL COURSE The patient was admitted to the adult chemical dependency unit at [facility] and was oriented to the hospital environment. Routine p.r.n. medications were initiated, and he was started on the alcohol detox protocol and was closely monitored. He was exhibiting significant depressive symptoms and was requesting antidepressant and Effexor, which was initiated and later, trazodone was added to help with sleep as well. He was seen to be polite and pleasant and compliant with treatment recommendation and had a prolonged complicated detox, but was able to have complete resolution without any complications and was willing to continue treatment on an outpatient basis and was wanting to go home and was denying any suicidal ideations, intent, or plan and was not seen to be danger to self or anyone else, and as such, it was decided that he will be discharged home and will continue treatment on an outpatient basis. DISCHARGE MEDICATIONS Effexor XR 75 mg a day for depression and trazodone 100 mg at bedtime for sleep. DISCHARGE CONDITION Stable. Unit #: [id number] #: [id number] Patient: PITO LLOYD PROGNOSIS Fair. Dictated by... Roxana Lozada/tanvir TD: 04/11/2017 07:22 JOB #: [id number] DISCHARGE SUMMARY Page 1 of 1 X Johana Forrest MD DISCHARGE SUMMARY
--- NOTE | ~2017-04-03 | PN ---
Unit #: [id number] #: [id number] Patient: PITO LLOYD [id number] [facility] [address] [place] [address] [id number] I MR#: [id number] NAME: PITO LLOYD ROOM: P214 Age: 46 Sex: M Admission Date: 04/03/2017 : 1970 Attending Physician: Johana Forrest M.D. Admitting Physician: Johana Forrest M.D. Primary Care Physician: Generic Doctor Not In System [facility] PROGRESS NOTES DATE OF SERVICE 04/04/2017 DISCUSSION Mr. Lloyd is a 46-year-old white male who was seen today. Chart was reviewed and case was discussed with the staff. He has been anxious and withdrawn though has not shown any agitation or irritability and has been cooperative with treatment recommendations and has been taking the medications and tolerating them fairly well with no reported side effects. MENTAL STATUS EXAMINATION Middle-aged white male who is casually dressed with fair personal hygiene, appears to be in no acute distress or discomfort. He was awake and alert on interaction with intact orientation. His mood is anxious with a congruent affect. He denies any suicidal or homicidal ideations. His insight and judgment remain slightly impaired. TREATMENT PLAN 1. We will continue him on his current medications and treatment protocol. We will monitor his response to the medications and make further adjustments as needed. 2. We will continue to follow up. Dictated by... Johana Forrest M.D. IAA/bzg TD: 04/06/2017 08:44 JOB #: [id number] [facility] PROGRESS NOTES Page 1 of 1 X Johana Forrest MD PROGRESS NOTE
--- NOTE | ~2017-04-03 | PN ---
Unit #: [id number] #: [id number] Patient: PITO LLOYD [id number] [facility] [address] [place] [address] [id number] I MR#: [id number] NAME: PITO LLOYD ROOM: P214 Age: 46 Sex: M Admission Date: 04/03/2017 : 1970 Attending Physician: Johana Forrest M.D. Admitting Physician: Johana Forrest M.D. Primary Care Physician: Yoan Doctor Not In System [facility] PROGRESS NOTES DATE OF SERVICE: 04/07/2017 SUBJECTIVE Mr. Lloyd is a 46-year-old white male with substance abuse, alcohol dependence, and mood disorder, who was seen today and chart was reviewed, and case was discussed with the staff. He has been anxious, withdrawn, though has not shown any agitation, irritability, and has been cooperative with treatment recommendations and has been taking medications and tolerating them fairly well with no reported side effects. MENTAL STATUS EXAMINATION Middle-aged white male, who was casually dressed with fair personal hygiene, appears to be in no acute distress or discomfort. He was awake and alert on interaction with intact orientation. His mood was anxious with congruent affect. He denies any suicidal or homicidal ideations. His insight and judgment remain slightly impaired. TREATMENT PLAN 1. We will continue him on his current treatment protocol. We will monitor his response and make further adjustments as needed. 2. We will continue to follow up. Dictated by... Roxana Lozada/bjl TD: 04/08/2017 15:53 JOB #: [id number] [facility] PROGRESS NOTES Page 1 of 1 X Johana Forrest MD PROGRESS NOTE
--- NOTE | ~2017-04-03 | PA ---
Unit #: [id number] #: [id number] Patient: PITO LLOYD [id number] [facility] [address] [place] [address] [id number] MR#: [id number] NAME: PITO LLOYD ROOM: P214 Age: 46 Sex: M Admission Date: 04/03/2017 : 1970 Date of Assessment: Attending Physician: Johana Forrest M.D. Admitting Physician: Johana Forrest M.D. Primary Care Physician: Generic Doctor Not In System PSYCHIATRIC ASSESSMENT IDENTIFYING DATA Mr. Lloyd is a 46-year-old white male, who is a resident of [place], [place] and is known to us from previous encounter, was recently discharged from my care within the last couple of weeks and was transferred back to us from [facility] and he presented with blood alcohol level of 274. CHIEF COMPLAINT "I relapsed on alcohol the day I was discharged in [facility]." He reports. HISTORY OF PRESENT ILLNESS Mr. Lloyd is a 46-year-old white male with a long history of alcohol dependence, who was recently discharged from my care after he was seen to be exhibiting rather poor insight and poor motivation towards treatment during hospitalization and now he presented back stating that he relapsed on the day he was discharged and has been drinking a gallon of vodka on daily basis and scored 40 on his CIWA score indicating severe withdrawal symptoms from alcohol. Meanwhile, he was seen to be anxious, withdrawn, unkempt, disheveled, disorganized, and does report increasing depression, anxiety, irritability, feelings of hopelessness and helplessness, and suicidal ideation as he stated that he attempted suicide a year ago by drinking a pint of 100-proof alcohol and taking a bottle of depression medication, reports over the last 2 years, he has experienced intermittent thoughts of killing himself and reports he attempted suicide by overdose in the past as well. SUBSTANCE ABUSE HISTORY The patient reports history of experimentation with cannabis, but alcohol remains his drug of choice and reports that he has been drinking since he was 16 years old and currently has been drinking a gallon of vodka on daily basis. PAST PSYCHIATRIC HISTORY The patient has had a history of multiple inpatient chemical dependency treatment at [facility] and has history of poor compliance with outpatient followup. Once again, he is not active in any treatment program, is not seeing a psychiatrist, and not taking psychotropic medications. PAST MEDICAL HISTORY Hypertension, hepatitis C, and cirrhosis of the liver. Unit #: [id number] #: [id number] Patient: PITO LLOYD ALLERGIES No known medication allergies. CURRENT MEDICATIONS None. PERSONAL AND SOCIAL HISTORY A 46-year-old white male, who reports that he is single, unemployed, and essentially homeless and has poor social support system. MENTAL STATUS EXAMINATION Middle-aged white male, who was casually dressed with fair personal hygiene, appears to be in no acute distress or discomfort. He was awake and alert on interaction with intact orientation to time, place, and person. His mood was anxious and depressed with a congruent affect. His speech was slow and restricted in content. He reports having suicidal ideation, but denies any intent or plan and also denies any auditory or visual hallucinations. His insight and judgment remain significantly impaired. DIAGNOSTIC IMPRESSION Psychiatric: Alcohol dependence, moderate, in acute withdrawals; alcohol-induced mood disorder. Medical; none. Stressors; moderate psychosocial stressors. TREATMENT PLAN 1. The patient has presented with history of substance abuse and mood disorder, and has been decompensating and will need inpatient hospitalization for detoxification, safety, and stabilization. We will start him back on his home medications. We will adjust the medications and monitor response. 2. Supportive therapy was provided to the patient. 3. Safe, structured, and nourishing environment will be provided. ESTIMATED LENGTH OF STAY 5 to 7 days. ABILITY TO HELP SELF Limited. WILLINGNESS TO HELP SELF The patient appears to be willing to help self. STRENGTHS 1. Communicative. 2. Cooperative. PROBLEMS 1. Chronic dysphoric symptoms. 2. Poor social support system. DISCHARGE CRITERIA This will be contingent upon the patient's ability to go through detox without having any significant withdrawal symptoms as well as his ability to stay safe to himself, particularly after discharge from the hospital. Dictated by... Unit #: [id number] #: [id number] Patient: PITO LLOYD Roxana Lozada/tanvir TD: 04/04/2017 07:14 JOB #: [id number] PSYCHIATRIC ASSESSMENT Page 1 of 1 X Johana Forrest MD PSYCHIATRIC ASSESSMENT
--- NOTE | ~2017-04-03 | HP ---
Unit #: [id number] #: [id number] Patient: PITO DIAMOND [id number] [facility] [address] [place] [address] [id number] I MR#: [id number] NAME: PITO DIAMOND ROOM: P214 Age: 46 Sex: M Admission Date: 04/03/2017 : 1970 Attending Physician: Johana Forrest M.D. Admitting Physician: Johana Forrest M.D. Primary Care Physician: Yoan Doctor Not In System HISTORY AND PHYSICAL HISTORY OF PRESENT ILLNESS Pito Christiansen is a 46 year old admitted to [address] [place] [address] because of his continued abuse of alcohol. He has had other admissions to this facility. PAST MEDICAL HISTORY 1. Long history of alcohol abuse. 2. Hepatitis C. 3. High blood pressure. PAST SURGICAL HISTORY Nothing reported ALLERGIES No known drug allergies. SOCIAL HISTORY Smokes one pack per day. Drinks a gallon of vodka plus beer on a daily basis and admits to frequent use of marijuana. FAMILY HISTORY Medically noncontributory. REVIEW OF SYSTEMS CONSTITUTIONAL: No fever or chills. HEENT: Denies any sore throat, ear pain or runny nose. CARDIOVASCULAR: Denies chest pain, irregular heart rhythm or palpitations. CHEST: Denies shortness of breath or cough. No hemoptysis. GASTROINTESTINAL: Denies nausea, vomiting, diarrhea or chronic constipation. ENDOCRINE: Denies history of increased thirst or urination. No recent significant weight loss or gain. GENITOURINARY: Denies dysuria, frequency, or hematuria. SKIN: Denies any rashes. HEMATOLOGIC: Denies history of increased bleeding or bruising. MUSCULOSKELETAL: Denies any hot, swollen joints. No generalized muscle pain. NEUROLOGIC: Denies problems with vision or speech. No frequent, severe headaches. No numbness, tingling or weakness in any extremities. Denies loss of bladder or bowel control. CURRENT MEDICATIONS Detox protocol Unit #: [id number] #: [id number] Patient: PITO DIAMOND PHYSICAL EXAMINATION GENERAL: Alert, well-nourished, in no apparent distress appearing much older than his stated age of 46. VITAL SIGNS: Blood pressure 136/98, heart rate 100, respirations 16, temperature 98.6. WEIGHT: 180 pounds. HEIGHT: 5'8". SKIN: Warm and dry without rash or lesion. HEENT: Normocephalic. TMs not viewed. Oral and nasal passages clear. Conjunctivae clear. Pupils equal, round and reactive to light and accommodation. Extraocular movements intact. NECK: Supple without lymphadenopathy or thyromegaly. HEART: Regular rate and rhythm without murmur. LUNGS: Clear. ABDOMEN: Soft, nontender. : Not done. EXTREMITIES: No evidence of cyanosis, clubbing or edema. Moves all extremities without focal deficit. NEUROLOGICAL: Grossly within normal limits. Cranial Nerves: II: Visual villegas are intact. III, IV AND : Extraocular movements are intact. Pupils are equal, round and reactive to light. V: Facial sensation is grossly normal. VII: Facial movements and expression are normal. VIII: Auditory acuity grossly intact. IX, X: Uvula is midline. Phonation is normal. XI: Patient shrugs shoulders and turns head normally. XII: Tongue protrudes in the midline. Sensory and Motor Function: Sensory and motor sensation is grossly normal. Motor: moves all extremities well. Coordination: Gait is normal. Deep Tendon Reflexes: Intact. IMPRESSION Psychiatric admission RECOMMENDATIONS PSYCHIATRIC: Per psychiatrist. MEDICAL: I see no contraindications to participating in facility's activities. MEDICAL PROGNOSIS Good. MEDICAL CONDITION Stable. Dictated by... Graeme VazquezABhaskar-Caro. for Roxana Reis/loni TD: 04/04/2017 00:17 JOB #: [id number] Unit #: [id number] #: [id number] Patient: PITO DIAMOND HISTORY AND PHYSICAL Page 1 of 1 X Vicky Paez X HISTORY AND PHYSICAL
--- NOTE | ~2017-04-03 | DS ---
Unit #: [id number] #: [id number] Patient: PITO LLOYD [id number] [facility] [address] [place] [address] [id number] MR#: [id number] NAME: PITO LLOYD ROOM: [facility] Age: 46 Sex: M Admission Date: 04/03/2017 : 1970 Discharge Date: 04/11/2017 Attending Physician: Johana Forrest M.D. DISCHARGE SUMMARY IDENTIFYING DATA Mr. Lloyd is a 46-year-old white male, who was self-referred to the hospital. DISCHARGE DIAGNOSES Psychiatric: Alcohol dependence, moderate, in acute withdrawals and alcohol-induced mood disorder. Medical: None. Stressors: Mild psychosocial stressors. HISTORY OF PRESENT ILLNESS Please see initial psychiatric evaluation for details. PAST PSYCHIATRIC HISTORY Please see initial psychiatric evaluation for details. PAST MEDICAL HISTORY Please see initial psychiatric evaluation for details. HOSPITAL COURSE The patient was admitted to the adult chemical dependency unit at [facility] and was oriented to the hospital environment. Routine p.r.n. medications were initiated, and he was started on the alcohol detox protocol and was closely monitored. He was taking the medications regularly and was tolerating them fairly well, though was not showing much insight into his situation and not good motivation towards treatment as he was insisting and pushing and wanting to leave and was denying any suicidal ideations, intent, or plan and was not seen to be a danger to self or anyone else and as such, it was decided that he will be discharged home and will continue treatment on an outpatient basis. DISCHARGE CONDITION Stable. PROGNOSIS Fair. Dictated by... Roxana Lozada/modl Unit #: [id number] #: [id number] Patient: PITO LLOYD TD: 04/13/2017 13:46 JOB #: [id number] DISCHARGE SUMMARY Page 1 of 1 X Johana Forrest MD X DISCHARGE SUMMARY
--- NOTE | ~2017-04-03 | PN ---
Unit #: [id number] #: [id number] Patient: PITO LLOYD [id number] [facility] [address] [place] [address] [id number] MR#: [id number] NAME: PITO LLOYD ROOM: P214 Age: 46 Sex: M Admission Date: 04/03/2017 : 1970 Attending Physician: Johana Forrest M.D. Admitting Physician: Johana Forrest M.D. Primary Care Physician: Generic Doctor Not In System [facility] PROGRESS NOTES DATE 04/09/2017 DISCUSSION Mr. Lloyd is a 47-year-old, white male who was seen today and chart was reviewed and case was discussed with the staff. He has been anxious, withdrawn though has not shown any agitation, irritability. He has been cooperative with treatment recommendations as he has been taking the medication and tolerating them fairly well and appears to be coming out the detox without any complications. MENTAL STATUS EXAM Middle-aged white male who was casually dressed with fair personal hygiene, appears to be in no acute distress or discomfort. He was awake and alert on interaction with intact orientation. His mood was anxious with congruent affect. He denies any suicidal or homicidal ideation. His insight and judgement remains slightly impaired. TREATMENT PLAN 1. We will continue him on his current medications and treatment protocol. We will monitor his response to the medication and make further adjustments as needed. 2. We will continue to follow up. Dictated by... Roxana Lozada/loni TD: 04/10/2017 22:10 JOB #: [id number] Unit #: [id number] #: [id number] Patient: PITO LLOYD [facility] PROGRESS NOTES Page 1 of 1 X Johana Forrest MD X PROGRESS NOTE
== END 2017-04-11 09:21 | disposition home or self-care (01) | DRG 897 ==
LOC: P2S 06:00
PROC: HZ2ZZZZ Detoxification Services for Substance Abuse Treatment (ICD-10-PCS; principal; 2017-04-03)
DX: F10.239 Alcohol dependence with withdrawal, unspecified (principal); F10.24 Alcohol dependence with alcohol-induced mood disorder; Z59.0 Homelessness; Y90.8 Blood alcohol level of 240 mg/100 ml or more
CPT/HCPCS: 86592

== ENCOUNTER 2017-04-23 01:00 | Inpatient (IN) | payer OTHER ==
--- NOTE | ~2017-04-23 | PN ---
Unit #: [id number] #: [id number] Patient: PITO LLOYD [id number] [facility] [address] [place] [address] [id number] I MR#: [id number] NAME: PITO LLOYD ROOM: P180 Age: 46 Sex: M Admission Date: 04/23/2017 : 1970 Attending Physician: Johana Forrest M.D. Admitting Physician: Johana Forrest M.D. Primary Care Physician: Yoan Doctor Not In System [facility] PROGRESS NOTES DATE OF SERVICE: 04/28/2017 SUBJECTIVE Mr. Lloyd is a 46-year-old white male with substance abuse and mood disorder, who was seen today and chart was reviewed, and case was discussed with the staff. He has been anxious, restless, withdrawn, and still has been showing elevated blood pressure. Meanwhile, he has been taking medications and tolerating them fairly well with no reported side effects. MENTAL STATUS EXAMINATION Middle-aged white male who was casually dressed with fair personal hygiene, appears to be in no acute distress or discomfort. He was awake and alert on interaction with intact orientation. His mood was anxious with a congruent affect. He denies any suicidal or homicidal ideations. His insight and judgment remain slightly impaired. TREATMENT PLAN 1. We will continue on his current treatment protocol. We will monitor his response to medications and make further adjustments as needed. 2. We will continue to follow up. Dictated by... Roxana Lozada/tanvir TD: 04/28/2017 22:51 JOB #: [id number] [facility] PROGRESS NOTES Page 1 of 1 X Johana Forrest MD PROGRESS NOTE
--- NOTE | ~2017-04-23 | PN ---
Unit #: [id number] #: [id number] Patient: PITO LLOYD [id number] [facility] [address] [place] [address] [id number] I MR#: [id number] NAME: PITO LLOYD ROOM: P180 Age: 46 Sex: M Admission Date: 04/23/2017 : 1970 Attending Physician: Johana Forrest M.D. Admitting Physician: Johana Forrest M.D. Primary Care Physician: Yoan Doctor Not In System [facility] PROGRESS NOTES DATE April 25. DISCUSSION Mr. Lloyd is a 46-year-old, white male who was seen today and chart was reviewed. The case was discussed with the staff. He was laying in the bed (1) with significant body order and reports feeling worse than yesterday and appears to be going into a detox. Meanwhile, he has been taking the medications and tolerating them fairly well with no reported side effects. MENTAL STATUS EXAMINATION Middle age, white male who was casually dressed with a poor personal hygiene and appears to be in no acute distress or discomfort. He was awake and alert on interaction with intact orientation. His mood was anxious and depressed with a congruent affect. Speech was slow and restricted in content. He denies any current suicidal or homicidal ideation. His insight and judgement remain slightly impaired. TREATMENT PLAN 1. We will continue his current treatment protocol and will monitor his response to the medications and make further adjustments as needed. 2. We will continue to follow up. Dictated by... Roxana Lozada/nilsa TD: 04/26/2017 12:43 JOB #: [id number] Unit #: [id number] #: [id number] Patient: PITO LLOYD [facility] PROGRESS NOTES Page 1 of 1 X Johana Forrest MD PROGRESS NOTE
--- NOTE | ~2017-04-23 | PN ---
Unit #: [id number] #: [id number] Patient: PITO LLOYD [id number] [facility] [address] [place] [address] [id number] MR#: [id number] NAME: PITO LLOYD ROOM: P180 Age: 46 Sex: M Admission Date: 04/23/2017 : 1970 Attending Physician: Johana Forrest M.D. Admitting Physician: Johana Forrest M.D. Primary Care Physician: Generic Doctor Not In System [facility] PROGRESS NOTES DATE 04/26/2017 DISCUSSION Mr. Lloyd is a 46-year-old, white male who was seen today and chart was reviewed and case was discussed with the staff. He remains anxious, withdrawn, depressed and seclusive to himself with poor hygiene and feelings of hopelessness and helplessness and irritability to perform activities of daily living. The staff reports that he has been isolative and seclusive to himself. He has been however, taking medication and tolerating them fairly well (1) . ADDITIONAL JOB #[id number] Dictated by... Roxana Lozada/loni TD: 04/27/2017 05:15 JOB #: [id number] [facility] PROGRESS NOTES Page 1 of 1 X Johana Forrest MD X PROGRESS NOTE
--- NOTE | ~2017-04-23 | PN ---
Unit #: [id number] #: [id number] Patient: PITO DIAMOND [id number] [facility] [address] [place] [address] [id number] MR#: [id number] NAME: PITO DIAMOND ROOM: P180 Age: 46 Sex: M Admission Date: 04/23/2017 : 1970 Attending Physician: Johana Forrest M.D. Admitting Physician: Johana Forrest M.D. Primary Care Physician: Generic Doctor Not In System [facility] PROGRESS NOTES ADDENDUM REPORT DATE April 26, 2017 DISCUSSION MENTAL STATUS EXAMINATION Middle-aged white male, who was casually dressed with marginal personal hygiene and appears to be in slight distress or discomfort. He was awake and alert with intact orientation. His mood is anxious and depressed with a congruent affect. His speech is slow and restricted in content. He reports having suicidal ideations but denies homicidal ideations. His insight and judgment remain slightly impaired. TREATMENT PLAN 1. We will continue him on his current medications and treatment protocol and will monitor his response to the medications, and make further adjustments as needed. 2. We will continue to followup. Dictated by... Roxana Lozada/karen TD: 04/27/2017 05:17 JOB #: [id number] [facility] PROGRESS NOTES Page 1 of 1 X Johana Forrest MD PROGRESS NOTE
--- NOTE | ~2017-04-23 | PN ---
Unit #: [id number] #: [id number] Patient: PITO LLOYD [id number] [facility] [address] [place] [address] [id number] I MR#: [id number] NAME: PITO LLOYD ROOM: P180 Age: 46 Sex: M Admission Date: 04/23/2017 : 1970 Attending Physician: Johana Forrest M.D. Admitting Physician: Johana Forrest M.D. Primary Care Physician: Yoan Doctor Not In System [facility] PROGRESS NOTES DATE 04/27/2017 DISCUSSION Mr. Lloyd is a 46-year-old, white male who was seen today and chart was reviewed and case was discussed with the staff. He has been anxious, withdrawn, depressed and seclusive to himself and also has been having his blood pressure run high and clonidine has to be given last evening. Meanwhile, he has been taking medications and tolerating them fairly well with no reported side effects. MENTAL STATUS EXAM Middle-aged white male who was casually dressed with fair personal hygiene, appears to be in no acute distress or discomfort. He was awake and alert on interaction with intact orientation. His mood was anxious with congruent affect. He denies any suicidal or homicidal ideation. His insight and judgement remains slightly impaired. TREATMENT PLAN 1. We will continue him on his current treatment protocol. We will monitor his response and make further adjustments as needed. 2. We will continue to follow up. Dictated by... Roxana Lozada/loni TD: 04/30/2017 02:03 JOB #: [id number] Unit #: [id number] #: [id number] Patient: PITO LLOYD [facility] PROGRESS NOTES Page 1 of 1 X Johana Forrest MD X PROGRESS NOTE
--- NOTE | ~2017-04-23 | PA ---
Unit #: [id number] #: [id number] Patient: PITO LLOYD [id number] [facility] [address] [place] [address] [id number] I MR#: [id number] NAME: PITO LLOYD ROOM: P180 Age: 46 Sex: M Admission Date: 04/23/2017 : 1970 Date of Assessment: 04/23/2017 Attending Physician: Johana Forrest M.D. Admitting Physician: Johana Forrest M.D. Primary Care Physician: Generic Doctor Not In System PSYCHIATRIC ASSESSMENT DATE OF SERVICE 04/23/2017. IDENTIFYING DATA Mr. Lloyd is a 46-year-old white male, who is a resident of [place], [place], and is known to us from previous encounter, was recently discharged from my care a couple of weeks ago and once again was transferred back to us from [facility]. CHIEF COMPLAINT "I've been drinking about a gallon of vodka on daily basis." HISTORY OF PRESENT ILLNESS Mr. Lloyd is a 46-year-old white male with long history of mood disorder and alcohol dependence, who was recently detoxed under my care and was discharged home. However, he brought himself to the emergency room at [facility] with blood alcohol level of 375 and stating that he has been drinking about a gallon of vodka daily and that he starts his day at 6:00 a.m. and drinks 6 beers and gets half a gallon of vodka and that he will then drink with his friends what his friends give him which he believes equal out to about a gallon of vodka on a daily basis and [facility] and he started drinking again about 3 days after discharge from the hospital. He reports increasing in significant withdrawal symptoms and that he has been having tremors and has been vomiting and has been having difficulty focusing and concentrating and it is concerned that he may have a seizure as he has a long history of withdrawal symptoms. He does report some depression, anxiety, feelings of hopelessness and helplessness, stating "I'm tired of being sick and tired." He also stated that he is getting really close to feeling suicidal and that "this is what my life is going to be." As such, he was seen to be a significant danger to self and others; therefore, recommendation for inpatient level of care for safety and stabilization was made and the patient was transferred to us. SUBSTANCE ABUSE HISTORY The patient has a history of cannabis and alcohol dependence, though he also tested positive for benzodiazepine upon presentation and reports alcohol to be his drug of choice stating that he has been drinking a gallon of vodka on daily basis. PAST PSYCHIATRIC HISTORY The patient has had history of multiple inpatient chemical dependency treatments at [facility] and has been diagnosed and treated for Unit #: [id number] #: [id number] Patient: PITO LLOYD mood disorder and supposed to be on a combination of Effexor and Vistaril and trazodone, but has history of poor compliance with outpatient treatment and as such, has been decompensating. PAST MEDICAL HISTORY Hypertension, hepatitis C, and cirrhosis of the liver. ALLERGIES No known medication allergies. PERSONAL AND SOCIAL HISTORY A 46-year-old white male, who reports that he is single, unemployed, and homeless and and has poor social support system. MENTAL STATUS EXAMINATION Middle-aged white male who was casually dressed with fair personal hygiene, appears to be in no acute distress or discomfort. He was awake and alert on interaction with intact orientation to time, place, and person. His mood was anxious and depressed with a congruent affect. His speech was slow and restricted in content. His thought processes were disorganized with some looseness of associations. He denies any suicidal or homicidal ideations and also denies any auditory or visual hallucinations. His insight and judgment remain significantly impaired. DIAGNOSTIC IMPRESSION Psychiatric: Major depressive disorder, recurrent, moderate, without psychotic features; alcohol dependence, moderate and acute withdrawals. Medical: Hypertension, hepatitis C, cirrhosis of the liver. Stressors: Moderate psychosocial stressors. TREATMENT PLAN 1. The patient has presented with history of mood disorder and substance abuse and has been decompensating and will need inpatient hospitalization for detoxification, safety, and stabilization. We will start him back on his home medication and detox protocol will be initiated as well. 2. Supportive therapy was provided to the patient. 3. Safe, structured, and nourishing environment will be provided. ESTIMATED LENGTH OF STAY 5 to 7 days. ABILITY TO HELP SELF Limited. WILLINGNESS TO HELP SELF The patient appears to be willing to help self. STRENGTHS 1. Communicative. 2. Cooperative. PROBLEMS 1. Chronic dysphoric symptoms. 2. Poor social support system. DISCHARGE CRITERIA This will be contingent upon the patient's ability to show resolution of his depression and anxiety and his ability to go through detox without Unit #: [id number] #: [id number] Patient: PITO LLOYD having any significant withdrawal symptoms and his ability to stay safe to himself, particularly after discharge from the hospital. Dictated by... Johana Forrest M.D. CYN/tanvir TD: 04/24/2017 07:40 JOB #: [id number] PSYCHIATRIC ASSESSMENT Page 1 of 1 X Johana Forrest MD X PSYCHIATRIC ASSESSMENT
--- NOTE | ~2017-04-23 | PN ---
Unit #: [id number] #: [id number] Patient: PITO LLOYD [id number] [facility] [address] [place] [address] [id number] MR#: [id number] NAME: PITO LLOYD ROOM: P180 Age: 46 Sex: M Admission Date: 04/23/2017 : 1970 Attending Physician: Johana Forrest M.D. Admitting Physician: Johana Forrest M.D. Primary Care Physician: Yoan Doctor Not In System [facility] PROGRESS NOTES DATE OF SERVICE: 04/30/2017 SUBJECTIVE Mr. Lloyd is a 46-year-old white male, who was seen today and chart was reviewed, and case was discussed with the staff. He has been anxious, withdrawn, and rather seclusive to himself. Meanwhile, he has been cooperative with treatment recommendation and has been taking medications and tolerating them fairly well with no reported side effects. MENTAL STATUS EXAMINATION Middle-aged white male who was casually dressed with fair personal hygiene, appears to be in no acute distress or discomfort. He was awake and alert on interaction with intact orientation. His mood was anxious with a congruent affect. He denies any suicidal or homicidal ideations. His insight and judgment remain slightly impaired. TREATMENT PLAN 1. We will continue on his current treatment protocol. We will monitor his response to medications and make further adjustments as needed. 2. We will continue to follow up. Dictated by... Roxana Lozada/bjl TD: 05/01/2017 01:14 JOB #: [id number] [facility] PROGRESS NOTES Page 1 of 1 X Johana Forrest MD PROGRESS NOTE
--- NOTE | ~2017-04-23 | PN ---
Unit #: [id number] #: [id number] Patient: PITO LLOYD [id number] [facility] [address] [place] [address] [id number] I MR#: [id number] NAME: PITO LLOYD ROOM: P180 Age: 46 Sex: M Admission Date: 04/23/2017 : 1970 Attending Physician: Johana Forrest M.D. Admitting Physician: Johana Forrest M.D. Primary Care Physician: Generic Doctor Not In System [facility] PROGRESS NOTES DATE 04/24/2017 DISCUSSION Mr. Lloyd is a 46-year-old white male with alcohol dependence and mood disorder who was seen today and chart was reviewed and case was discussed with the staff. He was seen to be anxious, restless, tremulous, shaking, unkempt, disheveled and in acute distress or discomfort as he goes through detox and also reports increasing depressive symptoms with feelings of hopelessness. Meanwhile, he has been taking medications and tolerating them fairly well with no reported side effects. MENTAL STATUS EXAMINATION Middle-aged white male who was casually dressed with marginal personal hygiene and appears to be in distress and discomfort. He was awake and alert on interaction with intact orientation. His mood was anxious and depressed with congruent affect. He reports having suicidal ideation but denies any intent or plan. His insight and judgement remains significantly impaired. TREATMENT PLAN Will continue on his current medications and detox protocol. Will monitor response and make further adjustments as needed. Dictated by... Roxana Lozada/ida TD: 04/24/2017 23:11 JOB #: [id number] Unit #: [id number] #: [id number] Patient: PITO LLOYD [facility] PROGRESS NOTES Page 1 of 1 X Johana Forrest MD X PROGRESS NOTE
--- NOTE | ~2017-04-23 | DS ---
Unit #: [id number] #: [id number] [facility]: [facility] [id number] [facility] [address] [place] [address] [id number] I MR#: [id number] NAME: PITO LLOYD ROOM: P180 Age: 46 Sex: M Admission Date: 04/23/2017 : 1970 Discharge Date: 05/01/2017 Attending Physician: Johana Forrest M.D. Primary Care Physician: Generic Doctor Not In System DISCHARGE SUMMARY IDENTIFYING DATA Mr. Lloyd is a 46-year-old white male, who is a resident of [place], [place], and is known to us from previous encounter, and was recently discharged from my care and was self-referred back to the hospital. DISCHARGE DIAGNOSES Psychiatric: Major depressive disorder, recurrent, moderate, without psychotic features; alcohol dependence, moderate and acute withdrawals. Medical: Hypertension, hepatitis C, cirrhosis of the liver. Stressors: Moderate psychosocial stressors. HISTORY OF PRESENT ILLNESS Please see initial psychiatric evaluation for details. PAST PSYCHIATRIC HISTORY Please see initial psychiatric evaluation for details. PAST MEDICAL HISTORY Please see initial psychiatric evaluation for details. HOSPITAL COURSE The patient was admitted to the adult psychiatric unit at [facility] and was oriented to the hospital environment. Routine p.r.n. medications were initiated, and he was started on the alcohol detox protocol and was also started back on his home medications including his Effexor and trazodone was given to help him with sleep. He was taking the medications regularly and was tolerating them fairly well and was able to show a fairly decent therapeutic response with improvement in depression and anxiety and was willing to continue treatment on an outpatient basis and as such, it was decided that he will be discharged home and will continue treatment on an outpatient basis. DISCHARGE MEDICATIONS Effexor XR 75 mg a day for depression and trazodone 200 mg at bedtime for sleep. DISCHARGE CONDITION Stable. PROGNOSIS Fair. Unit #: [id number] #: [id number] Patient: PITO LLOYD Dictated by... Roxana Lozada/tanvir TD: 05/01/2017 06:46 JOB #: [id number] DISCHARGE SUMMARY Page 1 of 1 X Johana Forrest MD DISCHARGE SUMMARY
--- NOTE | ~2017-04-23 | PN ---
Unit #: [id number] #: [id number] Patient: PITO LLOYD [id number] [facility] [address] [place] [address] [id number] I MR#: [id number] NAME: PITO LLOYD ROOM: P180 Age: 46 Sex: M Admission Date: 04/23/2017 : 1970 Attending Physician: Johana Forrest M.D. Admitting Physician: Johana Forrest M.D. Primary Care Physician: Generic Doctor Not In System [facility] PROGRESS NOTES DATE 04/29/2017 DISCUSSION Mr. Lloyd is a 46-year-old, white male who was seen today and chart was reviewed and case was discussed with the staff. He has been anxious, withdrawn and rather seclusive to the room. Meanwhile, he has been cooperating with treatment recommendations and has been taking the medications and tolerating them fairly well with no reported side effects. MENTAL STATUS EXAM Middle-aged white male who was casually dressed with fair personal hygiene, appears to be in no acute distress or discomfort. He was awake and alert on interaction with intact orientation. His mood was anxious with congruent affect. He denies any suicidal or homicidal ideation. His insight and judgement remains slightly impaired. TREATMENT PLAN 1. We will continue him on his current medications and treatment protocol. We will monitor his response to medication and make further adjustments as needed. 2. We will continue to follow up. Dictated by... Roxana Lozada/loni TD: 05/02/2017 00:20 JOB #: [id number] Unit #: [id number] #: [id number] Patient: PITO LLOYD [facility] PROGRESS NOTES Page 1 of 1 X Johana Forrest MD X PROGRESS NOTE
--- NOTE | ~2017-04-23 | HP ---
Unit #: [id number] #: [id number] Patient: PITO DIAMOND [id number] [facility] [address] [place] [address] [id number] I MR#: [id number] NAME: PITO DIAMOND ROOM: P180 Age: 46 Sex: M Admission Date: 04/23/2017 : 1970 Attending Physician: Johana Forrest M.D. Admitting Physician: Johana Forrest M.D. Primary Care Physician: Generic Doctor Not In System HISTORY AND PHYSICAL HISTORY OF PRESENT ILLNESS Pito Christiansen is a 46 year old admitted to [facility] because of his continued abuse of alcohol. He was just discharged from this facility after treatment for the same. The patient was seen a history and physical dated 04/03/2017 was reviewed. This is current except he has an abrasion along his left elbow. This area has scabbed over. There is no increase redness, swelling, heat or pus noted. He also has a laceration to the inside of his right upper lip. IMPRESSION 1. Psychiatric admission 2. Continued alcohol abuse 3. Abrasion left elbow sustained prior to this admission 4. Laceration to his inner right upper lip sustained prior to admission. RECOMMENDATION Psychiatric per psychiatrist. MEDICAL 1. See no contraindication to participate in facility activities. 2. Keep the abrasion on his left elbow clean with soap and water. 3. Patient knows to rinse his mouth with warm salt water after each meal. Please see history and physical dated 04/03/2017 for complete history and physical exam. Dictated by... Vicky Paez P.A.-C. for Roxana Reis/loni TD: 04/24/2017 00:23 JOB #: [id number] Unit #: [id number] #: [id number] Patient: PITO DIAMOND HISTORY AND PHYSICAL Page 1 of 1 X Vicky Paez HISTORY AND PHYSICAL
[2017-04-24 14:05] LABS: BASOPHIL% 0.6 % (0-2.5); EOSINOPHIL# 0.2 X10e3 (0-0.7); EOSINOPHIL% 3.7 % (0.0-7.0); HEMATOCRIT 40.1 % (38.0-50.0); HEMOGLOBIN 13.2 gm/dL (13.0-16.0); LYMPHOCYTE# 0.6 X10e3 (1.0-3.5); LYMPHOCYTE% 13.5 % (17.0-45.0); MEAN CELL VOLUME 96.7 FL (83-96); MEAN CORPUSCULAR HEMOGLOBIN 31.9 PG (28-34); MONOCYTE# 0.3 X10e3 (0-1.0); MONOCYTE% 6.6 % (3.0-12.0); NEUTROPHIL# 3.3 X10e3 (1.5-7.1); NEUTROPHIL% 75.6 % (40-75); PLATELET COUNT 137 X10e3 (140-420); RED BLOOD COUNT 4.15 X10e (3.90-5.60); RED CELL DISTRIBUTION WIDTH 14.4 % (11.0-15.5); WHITE BLOOD COUNT 4.4 X10e3 (4.0-10.5)
[2017-04-24 14:09] LABS: DIFF IND NO
[2017-04-24 14:14] LABS: ALBUMIN SERUM 3.4 g/dL (3.5-5.0); BILIRUBIN,TOTAL 1.1 mg/dL (0.2-2.0); BUN/CREATININE RATIO 12.5; CALCIUM SERUM 8.9 mg/dL (8.4-10.2); CREATININE SERUM 0.8 mg/dL (0.6-1.4); GLOM FILT RATE Estimated 108.7 mL/min (>60); POTASSIUM 3.7 mmol/L (3.5-5.1); PROTEIN TOTAL SERUM 6.7 g/dL (6.0-8.3)
[2017-04-28 12:50] LABS: AMPHETAMINE NEG (NEG); BARBITURATES NEG (NEG); BENZODIAZEPINES POS (NEG); COCAINE NEG (NEG); MARIJUANA NEG (NEG); OPIATES NEG (NEG); TRICYCLIC ANTIDEPRESSANTS NEG (NEG); U METHADONE NEG (NEG)
== END 2017-05-01 08:44 | DRG 885 ==
LOC: P1E 13:27
PROVIDERS: Psychiatry & Neurology Psychiatry
PROC: HZ2ZZZZ Detoxification Services for Substance Abuse Treatment (ICD-10-PCS; principal; 2017-04-23)
DX: F33.1 Major depressive disorder, recurrent, moderate (principal); K70.30 Alcoholic cirrhosis of liver without ascites; I10 Essential (primary) hypertension; F10.239 Alcohol dependence with withdrawal, unspecified; B19.20 Unspecified viral hepatitis C without hepatic coma
CPT/HCPCS: 80053; 80307; 85025; 86592